=== PATIENT | male | born 1950 | race Caucasian/White ===

== ENCOUNTER 2020-08-22 16:19 | Emergency (ER) | payer SELFPAY ==
[~2020-08-22] VITALS: Ht 182.9 cm; Wt 75.0 kg
--- NOTE | 2020-08-22 16:37 | NUR ---
PT BIBA FOR C/O UPPER ABD PAIN, ALSO REPORTS HE HAD A SYNCOPAL EPISODE THIS MORNING. PT PLACED ON ALL MONITORS. FALL PRECAUTIONS IN PLACE. CALL LIGHT GIVEN TO PT.
[2020-08-22] MEDS ORDERED: SODIUM CHLORIDE 0.9% 1,000ML IVBOLUS ONE (17:00)
[2020-08-22 17:11] LABS: BASOPHILS % (AUTO) 1 % (0-1); EOSINOPHILS % (AUTO) 2 % (1-7); LYMPHOCYTES % (AUTO) 24 % (22-44); MEAN CORPUSCULAR HEMOGLOBIN 32.4 pg (27.5-34.5); MEAN CORPUSCULAR HGB CONC 34.2 g/dL (33.2-36.2); MEAN PLATELET VOLUME 7.8 fL (7.4-10.4); MONOCYTES % (AUTO) 7 % (2-9); NEUTROPHILS % (AUTO) 67 % (42-75); PLATELET COUNT 329 x10^3/uL (130-400); RED BLOOD COUNT 4.47 x10^6/uL (4.38-5.82); RED CELL DISTRIBUTION WIDTH 14.3 % (9.4-14.8)
[2020-08-22 17:22] LABS: ALANINE AMINOTRANSFERASE 114 U/L (12-78); ALBUMIN 3.5 g/dL (3.4-5.0); ANION GAP 16 mmol/L (5-15); CHLORIDE 106 mmol/L (98-107); CREATININE 0.97 mg/dL (0.7-1.3)
[2020-08-22 17:26] LABS: ALKALINE PHOSPHATASE 93 U/L (45-117); BILIRUBIN,TOTAL 0.7 mg/dL (0.2-1.0); TOTAL PROTEIN 7.2 g/dL (6.4-8.2); TROPONIN I < 0.015 ng/mL (0.000-0.045)
--- NOTE | 2020-08-22 18:01 | NUR ---
PT OOB TO BATHROOM, AMBULATED ON STEADY GAIT.
[2020-08-22 18:16] LABS: MICROSCOPIC AUTO
[2020-08-22 19:25] VITALS: BP 158/80
== END 2020-08-22 19:28 | disposition home or self-care (01) ==
LOC: ED 17:00
DX: E86.0 Dehydration (principal); R10.12 Left upper quadrant pain; R55 Syncope and collapse; R10.32 Left lower quadrant pain; R00.0 Tachycardia, unspecified
CPT/HCPCS: 36415; 71045; 74177; 80053; 81001; 83690; 84484; 85025; 93005; 96360; 99285; J7030